=== PATIENT | female | born 1955 | race Caucasian/White ===

== ENCOUNTER 2020-08-05 11:05 | Day surgery (SDC) | payer SELFPAY ==
[~2020-08-05] VITALS: Ht 165.1 cm; Wt 86.3 kg
[~2020-08-05 11:05] MED LIST: AMLO-186 PO; FLUT1DIS3 IH; HYDR-2761 PO; HYDROmorphone 2 MG/ML VIAL IVP PRN; IV RINGERS,LACTATED 1000ML 1,000 ML IV SCH; LISI20TA18 PO; MORPHINE SULFATE 2 MG/ML VIAL. IVP PRN; OMEP20TA8 PO; PROCHLORPERAZINE 10 MG/2 ML VIAL. IVP PRN; VENTOLIN HFA18 GM INH; ceFAZolin 2GM PREMIX 2 GM/50 ML BAG IV ONE; fentaNYL PF VIAL 100 MCG/2 ML VIAL IVP PRN
[2020-08-05 11:49] VITALS: BP 171/75
[2020-08-05] MEDS ORDERED: LIDOCAINE 2% PF 5 ML VIAL. ONE (12:09)
[2020-08-05] MEDS ORDERED: PROPOFOL 10 MG/ML (20ML) VIAL. IV ONE (12:09)
[2020-08-05] MEDS ORDERED: DEXAMETHASONE SOD PHOS 4 MG/ML VIAL ONE (12:09)
[2020-08-05] MEDS ORDERED: ONDANSETRON PF 4 MG/2 ML VIAL. ONE (12:10)
[2020-08-05] MEDS ORDERED: OXYC1TAB19 PO (12:43)
--- NOTE | 2020-08-05 12:45 | DISCH ---
DISCHARGE INSTRUCTIONS Condition on Discharge Condition on Discharge: Stable Activity After Discharge Activity Instructions for Disc: Other, see below (Fine motor use with right hand such as eating writing limited typing no hard grasping lifting pushing or pulling) Lifting Instructions after Dis: No pulling or pushing Weight Bearing Status after Di: Non weight bearing Diet after Discharge Diet after Discharge: Regular Wound Incision Care Wound/Incision Care: Ice to area for comfort, Keep wound elevated, Do not change dressing (Keep splint and dressing intact unless soiled, on removal Steri-Strips can be removed later and use Velcro wrist brace for some support for activities) Contacting the after DC Call your doctor for: Concerns you may have Follow-Up Follow up with: Follow-up locally in [facility] as discussed ANNEL BRAGA MD Aug 05, 2020 12:45
[2020-08-05] MEDS ORDERED: BUPIVACAINE MPF 0.5% 30 ML VIAL. ONE (12:58)
[2020-08-05] MEDS ORDERED: SEVOFLURANE 61 TO 120 MINUTES. IH ONE (13:41)
[2020-08-05] MEDS ORDERED: KETOROLAC 30 MG/ML VIAL. ONE (13:41)
[2020-08-05] MEDS ORDERED: PHENYLEPHRINE in 0.9% NACL PF 1 MG/10 ML SYRINGE. IV ONE (13:42)
[2020-08-05] MEDS ORDERED: BUPIVACAINE-EPI 0.5% 30 ML VIAL KIT. INJ ONE (13:55)
[2020-08-05] MEDS ORDERED: HYDROmorphone 2 MG/ML VIAL ONE (14:26)
[2020-08-05] MEDS ORDERED: oxyCODONE/APAP 7.5/325 1 TAB TABLET PO ONE (15:00)
[2020-08-05 15:54] VITALS: BP 129/66
--- NOTE | 2020-08-05 21:15 | PDOC4 ---
Operative Note Operative Note Date of surgery: 08/05/2020 Preoperative diagnosis: Comminuted displaced intra-articular distal radius fracture Postoperative diagnosis: Same with three-part fracture Operative procedure: Operative reduction internal fixation three-part right intra-articular distal radius fracture Surgeon: Deuce Anesthesia: General Estimated blood loss: 15 cc Complications: None Operative indications: Patient is a 64-year-old female who is from [facility] family in [place] who was evaluated in the emergency department and splinted with an intra-articular distal radius fracture. Patient's information was sent to our office for follow-up and on checking the x-rays I noted that this injury would have a recommendation to be treated surgically and therefore contacted the patient and her family. I went over options with them in terms of potentially having surgery on her return home from her visit to her daughter or potentially getting surgery done here and while I would be willing to do follow-up she is far away and may need follow-up at home logistically. After talking it over with her daughter she wants to have surgery done here and can recover a bit at her daughters. We had talked about the possibility of infection nerve or blood vessel damage nonhealing medical or other anesthetic complications among others and the rationale for operative fixation of the fracture to align it as well as possible therefore minimizing later stiffness and degenerative change although even under the best of circumstances she may experience some of both. She agrees to proceed with surgi unruly evaluation and treatment Operative text: Patient was identified procedure verified patient placed in the supine position on the operating table. After adequate amounts of general anesthesia were administered the right upper extremity was prepped and draped in the standard sterile fashion with an upper arm tourniquet. After timeout was performed patient procedure identified and verified the right upper extremity was exsanguinated by Esmarch bandage tourniquet inflated to 250 mmHg and a standard volar Troy approach was carried out to the distal radius subperiosteal dissection was carried out and a narrow short Silvano DVR cross lock distal radial plate was placed after reduction carried out under fluoroscopic guidance and a single nonlocking screw placed in the sliding hole for final fine adjustments. Plate placement was checked with a K wire distally that aided in provisional fixation and screw trajectories. Locking screws were placed first distally and then proximally and each individually checked for positioning maintenance of fracture reduction and length. Excellent reduction was noted under multiple fluoroscopic views along with hardware positioning. Additional shaft fixation was carried out with both an additional nonlocking and locking screw in the shaft. There irrigation carried out normal saline solution subcutaneous closure accomplished with buried Vicryl suture subcuticular Monocryl followed by Steri-Strips and Mastisol. Well-padded Ortho-Glass volar splint was then placed fingers were noted to be warm pink following deflation of the tourniquet patient was returned to recovery room in stable condition having tolerated procedure well ANNEL BRAGA MD Aug 05, 2020 21:15
== END 2020-08-05 16:49 | disposition home or self-care (01) ==
LOC: SURG 11:05
PROVIDERS: ATTEND Orthopaedic Surgery
DX: S52.571A Other intraarticular fracture of lower end of right radius, initial encounter for closed fracture (principal); I10 Essential (primary) hypertension; J45.909 Unspecified asthma, uncomplicated; K21.9 Gastro-esophageal reflux disease without esophagitis; M19.90 Unspecified osteoarthritis, unspecified site; Z98.51 Tubal ligation status; Z98.890 Other specified postprocedural states; Z79.899 Other long term (current) drug therapy; Z20.822 Contact with and (suspected) exposure to COVID-19; X58.XXXA Exposure to other specified factors, initial encounter; Y93.89 Activity, other specified; Y92.89 Other specified places as the place of occurrence of the external cause; Y99.8 Other external cause status
CPT/HCPCS: 25609; 87426; A4364; A4930; A6402; A6449; C1713; J0690; J1100; J1170; J1885; J2370; J2405; J2704; J3490; 76000; A4452